=== PATIENT | female | born 1970 | race Caucasian/White ===

== ENCOUNTER → 2020-01-19 | Day surgery (SDC) | payer OTHER ==
[~2020-01-19] MED LIST: ESTROVEN PO; FENTANYL CITRATE/PF 100MCG/2 ML INJ ONE; FERROUS SULFAT324 MG PO; FERROUS SULFAT325 MG PO; HYOSCYAMINE 0.125 MG TAB ONE; LIDOCAINE HCL 2% LOCAL INJ 5 ML SDV VIAL INJ ONE; MIDAZOLAM HCL 2 MG/2 ML VIAL ONE; MULTIVITAMINS1 EAC7 PO; OMEPRAZOLE40 MG PO; PROPOFOL IV EMULSION 10 MG/ML 20 ML VIAL ONE
[2020-01-19 10:07] VITALS: BP 122/67
--- NOTE | 2020-01-19 10:49 | Operative Report ---
DATE OF PROCEDURE: 01/19/2020 SURGEON: Severino Navarro MD PROCEDURE: EGD with esophageal dilatation and biopsies and colonoscopy with polypectomy and biopsies. INDICATIONS FOR EGD: Dysphagia, bloating. INDICATIONS FOR COLONOSCOPY: Colorectal cancer screening, iron deficiency anemia. MEDICATIONS: The patient was done under MAC, please see anesthesiologist's note. PROCEDURE IN DETAIL: With the patient in left lateral decubitus position, a flexible fiberoptic Olympus gastroscope was introduced into the esophagus under direct visualization without any difficulty. There was some patchy erythema noted in distal esophagus. The scope was then advanced with ease into the stomach. Mucosa overlying the antrum and the body revealed some patchy erythema and [id number] edema, and biopsies were obtained, sent to stain for H pylori. The pylorus was of normal contour and shape, was intubated with ease and the scope, was advanced all the way to the second portion of the duodenum. Biopsies were obtained from the proximal second portion and the duodenal bulb to rule out sprue. The scope was then withdrawn back into the stomach and retroflexed and mucosa overlying the fundus and cardia appeared to be within normal limits. The scope was then straightened out, it was subsequently withdrawn. Esophagus was then dilated to size 52-Fijian Stewart. The patient tolerated procedure well. IMPRESSION: 1. Distal esophagitis. 2. Esophagus dilated to size 52-Fijian Stewart. 3. Gastritis, biopsied, biopsies sent to stain for H pylori. 4. Rule out sprue. PLAN: Follow up histology. Initiate Protonix 40 mg one p.o. q.a.m. a.c. The patient was then turned around after adequate lubrication of the anal canal, a flexible fiberoptic Olympus colonoscope was inserted into the rectum with ease and advanced all the way to the cecum. Mucosa overlying the cecum appeared to be within normal limits. The ileocecal valve was intubated and the scope was advanced into the terminal ileum. Several denuded areas were noted in the terminal ileum and biopsies were obtained. The scope was then withdrawn back into the colon. It was then withdrawn slowly. Mucosa overlying the ascending colon appeared to be within normal limits. Approximately 5 mm sessile polyp was removed per snare electrocautery from the transverse colon. An additional approximately 4 mm polyp was removed per hot snare polypectomy from the descending colon. One polyp was hot biopsied from the sigmoid colon. The rectum appeared to be within normal limits. The scope was then retroflexed into the distal rectum and small internal hemorrhoids were noted none of which was actively bleeding. The scope was then straightened out, it was subsequently withdrawn. The patient tolerated procedure well. Impression: 1. Ileitis, mild. 2. Transverse colon polyp, hot snared. 3. Descending colon polyp, hot snare. 4. Sigmoid colon polyp, hot biopsied. 5. Internal hemorrhoids none actively bleeding. Plan: Follow up histology. Check IBD panel, CRP and sedimentation rate. The patient might benefit from a small bowel series and if negative, a possible capsule endoscopy. The patient might benefit from a followup colonoscopy in 3 years. Severino Navarro MD [facility] [place] /[id number] cc: Chandler Navarro MD
== END | disposition home or self-care (01) ==
LOC: OR 06:25
PROVIDERS: ATTEND Internal Medicine Gastroenterology
DX: Z12.11 Encounter for screening for malignant neoplasm of colon (principal); D12.3 Benign neoplasm of transverse colon; D12.4 Benign neoplasm of descending colon; K29.50 Unspecified chronic gastritis without bleeding; K29.80 Duodenitis without bleeding; K52.9 Noninfective gastroenteritis and colitis, unspecified; K21.9 Gastro-esophageal reflux disease without esophagitis; K20.90 Esophagitis, unspecified without bleeding; K64.8 Other hemorrhoids; D50.9 Iron deficiency anemia, unspecified; R03.0 Elevated blood-pressure reading, without diagnosis of hypertension; M54.9 Dorsalgia, unspecified; Z88.0 Allergy status to penicillin; Z01.810 Encounter for preprocedural cardiovascular examination; Z01.812 Encounter for preprocedural laboratory examination; Z11.59 Encounter for screening for other viral diseases; Z68.31 Body mass index [BMI] 31.0-31.9, adult; Z80.0 Family history of malignant neoplasm of digestive organs
CPT/HCPCS: 36415; 43239; 43450; 45380; 45384; 45385; 81025; 85651; 86140; 86256; 86671; 93005; J2001; J2250; J2704; J3010; U0002

== ENCOUNTER → 2020-02-15 | Outpatient (CLI) | payer OTHER ==
[~2020-02-15] MED LIST changes: -FENTANYL CITRATE/PF 100MCG/2 ML INJ ONE; -HYOSCYAMINE 0.125 MG TAB ONE; -LIDOCAINE HCL 2% LOCAL INJ 5 ML SDV VIAL INJ ONE; -MIDAZOLAM HCL 2 MG/2 ML VIAL ONE; -PROPOFOL IV EMULSION 10 MG/ML 20 ML VIAL ONE
== END ==
LOC: DX 08:22
PROVIDERS: ATTEND Internal Medicine Gastroenterology
DX: D50.9 Iron deficiency anemia, unspecified (principal); Z11.59 Encounter for screening for other viral diseases
CPT/HCPCS: 74250; U0002

== ENCOUNTER 2021-01-13 06:14 | Observation (INO) | payer OTHER ==
[~2021-01-13] VITALS: Ht 172.7 cm; Wt 93.4 kg
[~2021-01-13 06:14] MED LIST changes: +AMLODIPINE BESYL5 MG PO; +ASPIRIN81 MG PO; +CALCIUM/VITAMIN D PO; +CO Q-10100 MG PO; +FISH OIL 1,0001 EAC2 PO; +LIPITOR10 MG PO; +PANTOPRAZOLE SO40 MG PO; +RED YEAST RICE600 MG PO; +VITAMIN D3 PO; +WOMEN'S 50 PLU1 EACH PO; +ZINC PO
[2021-01-13] MEDS ORDERED: DEXAMETHASONE SOD PHOS 10 MG/1 ML VIAL ONE (06:16)
[2021-01-13] MEDS ORDERED: CELECOXIB 200 MG CAP ONE (06:16)
[2021-01-13] MEDS ORDERED: GABAPENTIN 300 MG CAP ONE (06:17)
[2021-01-13] MEDS ORDERED: ROPIVACAINE 246.25 MG, EPINEPHRINE HCL 1:1000 1ML 0.5 MG, CLONIDINE HCL 0.08 MG, KETORO... INJ ONE ×5 (06:30)
[2021-01-13] MEDS ORDERED: Vancomycin IV 1,000 MG ONE (06:45)
[2021-01-13] MEDS ORDERED: TRANEXAMIC ACID 1,000 MG/10 ML ML ONE (06:45)
[2021-01-13] MEDS ORDERED: SODIUM CHLORIDE 0.9% 500ML 500 ML ONE (06:45)
[2021-01-13] MEDS ORDERED: FENTANYL CITRATE/PF 100MCG/2 ML INJ ONE (06:54)
[2021-01-13] MEDS ORDERED: MIDAZOLAM HCL 2 MG/2 ML VIAL ONE (06:54)
[2021-01-13] MEDS ORDERED: HYDROCODONE/APAP 7.5MG-325MG 1 EA TAB PO PRN (08:30)
[2021-01-13] MEDS ORDERED: ONDANSETRON HCL INJ 2MG/ML 2ML 2 MG/ML VIAL IV PRN (08:30)
[2021-01-13] MEDS ORDERED: DOCUSATE SODIUM 100 MG CAP PO PRN (08:30)
[2021-01-13] MEDS ORDERED: DIPHENHYDRAMINE HCL INJ 50 MG/ML VIAL IV PRN (08:30)
[2021-01-13] MEDS ORDERED: ACETAMINOPHEN 650 MG SUPP PR PRN (08:30)
[2021-01-13] MEDS ORDERED: ZOLPIDEM TARTRATE 5 MG TAB PO PRN (08:30)
[2021-01-13] MEDS ORDERED: HYDROCODONE/APAP 5MG-325MG TAB PO PRN (08:30)
[2021-01-13] MEDS ORDERED: KETOROLAC TROMETHAMINE 30 MG/ML VIAL IV PRN (08:30)
[2021-01-13] MEDS ORDERED: HYDROMORPHONE 1MG/1ML INJ ONE (08:47)
[2021-01-13] MEDS: CELECOXIB 200 MG CAP PO SCH ×3 (09:00→16:16)
[2021-01-13] MEDS ORDERED: SODIUM CHLORIDE 0.9% 1000ML 1,000 ML IV SCH (10:30)
[2021-01-13 10:49] VITALS: BP 133/80
[2021-01-13 11:03] VITALS: BP 133/80
[2021-01-13 11:30] VITALS: BP 127/86
[2021-01-13] MEDS: ASPIRIN 325 MG TAB PO SCH ×2 (11:59→16:16)
[2021-01-13] MEDS ORDERED: Cefazolin 1 GM in SODIUM CHLORIDE 0.9% 50ML 50 ML IV SCH (15:00)
[2021-01-13 15:38] VITALS: BP 138/81
[2021-01-14] MEDS ORDERED: ACETAMINOPHEN 1000 MG/100 ML IV PRN (08:30)
== END 2021-01-13 18:20 | disposition home or self-care (01) ==
LOC: OR 06:14 → PACU V 08:26 → MED/SURG 09:35
PROVIDERS: ADMIT Specialist; ATTEND Specialist
DX: M17.31 Unilateral post-traumatic osteoarthritis, right knee (principal); K29.80 Duodenitis without bleeding; K29.70 Gastritis, unspecified, without bleeding; Z88.8 Allergy status to other drugs, medicaments and biological substances; I10 Essential (primary) hypertension; E78.5 Hyperlipidemia, unspecified; D64.9 Anemia, unspecified; Z01.812 Encounter for preprocedural laboratory examination; Z20.822 Contact with and (suspected) exposure to COVID-19
CPT/HCPCS: 20680; 27447; 73560; 81025; 86850; 86900; 86920; 97110; 97116; 97161; 97530; G0378; J0171; J0690; J1100; J1170; J1885; J2250; J2795; J3010; J3370; J7030; J7040; U0002